=== PATIENT | male | born 1960 | race Caucasian/White ===

== ENCOUNTER 2020-04-15 06:47 | Outpatient (CLI) | payer OTHER, SELFPAY ==
--- NOTE | 2020-04-15 07:15 | XR_ITS ---
WS: [id number] Exam: XR KUB [id number] Date/Time of Exam: 04/15/2020 7:15 AM Reason For Exam: RENAL STONES Comparison 04/15/2019. There are several calcifications superimposing the lower pole of the right kidney. The largest measur ing about a centimeter in greatest diameter. There are also probable small calcifications superimposi ng the upper pole left kidney. No bowel obstruction or free air. Visualized organ margins are intact. Moderate amount stool in the colon. Moderately advanced DJD of the hips. There may be partial fusion of the SI joints. XR/XR KUB [id number] IMPRESSION: 1. Calcifications superimposing both kidneys suggesting bilateral renal lithias is. 2. No acute finding.
== END 2020-04-15 06:48 | disposition home or self-care (01) ==
PROVIDERS: PCP Family Medicine; Visit Provider Urology
DX: N20.0 Calculus of kidney (principal)
CPT/HCPCS: 74018; 81003

== ENCOUNTER 2021-04-18 06:58 | Outpatient (CLI) | payer OTHER, SELFPAY ==
--- NOTE | 2021-04-18 07:15 | XRR_ITS ---
PROCEDURE INFORMATION: Exam: XR Abdomen Exam date and time: 04/18/2021 7:15 AM Age: 60 years old Clinical indication: Renal calculus TECHNIQUE: Imaging protocol: XR of the abdomen. Views: Frontal supine view of the abdomen. 1 View. COMPARISON: CR XR KUB [id number] 04/15/2020 7:02 AM FINDINGS: Gastrointestinal tract: Nonobstructive bowel gas pattern. Moderate gas and stool in the colon; query constipation. Intraperitoneal space: No gross free air. Abdominal organs: Right renal stones are seen. Possible small left renal stone. Probable prior cholecystectomy. XR/XR KUB [id number] IMPRESSION: 1. Right renal stones are seen. Possible small left renal stone. 2. Moderate gas and stool in the colon; query constipation. Radiation Dose CTDIVOL = (mGy): DLP = (mGy-cm)
== END 2021-04-18 06:59 | disposition home or self-care (01) ==
LOC: RAD 07:06
PROVIDERS: PCP Family Medicine; Visit Provider Urology
DX: N20.0 Calculus of kidney (principal)
CPT/HCPCS: 74018; 81003; G0103

== ENCOUNTER 2022-04-18 07:10 | Outpatient (CLI) | payer OTHER, SELFPAY | END 2022-04-18 07:11 | disposition home or self-care (01) | LOC: RAD 07:11 | PROVIDERS: PCP Family Medicine; Visit Provider Urology | DX: N20.0 Calculus of kidney (principal); Z90.49 Acquired absence of other specified parts of digestive tract | CPT/HCPCS: 74018; 81003 ==

== ENCOUNTER → 2024-01-31 14:55 | Outpatient (BNVA) | payer MEDICARE, OTHER, SELFPAY | PROVIDERS: PCP Family Medicine; Referring Provider Family Medicine; Visit Provider Nurse Practitioner Family | DX: D23.71 Other benign neoplasm of skin of right lower limb, including hip (principal); I87.2 Venous insufficiency (chronic) (peripheral); L08.9 Local infection of the skin and subcutaneous tissue, unspecified; L57.0 Actinic keratosis; L28.1 Prurigo nodularis; L57.8 Other skin changes due to chronic exposure to nonionizing radiation | CPT/HCPCS: 11104; 17000; 99204 ==

== ENCOUNTER 2024-02-02 19:12 | Emergency (ER) | payer MEDICARE, SELFPAY ==
--- NOTE | 2024-02-02 19:14 | USR_ITS ---
PROCEDURE INFORMATION: Exam: US Duplex Left Lower Extremity Veins, Limited Exam date and time: 02/02/2024 8:20 PM Age: 63 years old Clinical indication: Pain; Leg, lower; Left; Additional info: Eval for clot TECHNIQUE: Imaging protocol: Real-time duplex ultrasound of the left extremity with 2-D wilson scale, color Doppler flow and spectral waveform analysis including responses to compression and other maneuvers (when performed) with image documentation. Limited exam focused on the left lower extremity veins. COMPARISON: No relevant prior studies available. FINDINGS: Left deep veins: Unremarkable. The common femoral, femoral, proximal profunda femoral and popliteal veins are patent without thrombus. Normal Doppler waveforms. Normal compressibility and/or augmentation response. Superficial veins: Greater saphenous vein at the saphenofemoral junction is patent without thrombus. Soft tissues: Unremarkable. US/CV venous duplex [facility] [id number] IMPRESSION: No evidence of deep vein thrombosis.
[2024-02-02 19:19] VITALS: BP 201/92; PULSE 60; RESP 17; TEMP 37; O2SAT 98; BMI 32.1
--- NOTE | 2024-02-02 19:42 | ED_ITS ---
Documented by User: [email or web address] Flannery 02/02/24 23:11 HPI - Extremity Problem General: Chief complaint: Extremity Problem,Nontraumatic Stated complaint: urgent care sent L leg swollen poss blood clot Time Seen by Provider: 02/02/24 19:26 Source: patient Mode of arrival: ambulatory Limitations: no limitations History of Present Illness: Patient is a 63-year-old male presenting to the emergency department complaining of left lower extremity swelling onset today. Patient had biopsy of skin lesion on his left lower extremity yesterday, and everything was okay until he noticed the swelling this morning. Also was reporting pain to this area. Denies history of blood clots. Denies history of recent immobilization or long traveling, states that he is on his feet all day for a living. He is not on a blood thinner. He states that he is having pain with ambulation. He is not having any shortness of breath or chest pain at this time. Swelling has only gotten worse throughout the day, and terminates at the left knee. He was initially seen in urgent care but referred over here to rule out blood clot. MD Complaint: extremity pain and extremity swelling Onset (ago): hour(s) Pain Consistency: constant Location: left and lower extremity Radiation: proximal Exacerbating factors: weight bearing Associated symptoms: Deny chest pain, fever(s) or rash Related Data Home Medications Medication Instructions Recorded Confirmed aripiprazole 5 mg tablet 5 mg PO DAILY 04/15/20 02/02/24 aspirin 325 mg tablet 325 mg PO DAILY 04/15/20 02/02/24 diltiazem HCl 120 mg 120 mg PO Q12H 04/15/20 02/02/24 capsule,extended release 12 hr gabapentin 300 mg capsule 300 mg PO TID 04/15/20 02/02/24 krill oil 500 mg capsule mg PO 04/15/20 02/02/24 magnesium citrate 100 mg tablet 250 mg PO DAILY 04/15/20 02/02/24 meloxicam 15 mg tablet 15 mg PO DAILY 04/15/20 02/02/24 metoprolol tartrate 50 mg tablet 50 mg PO BID 04/15/20 02/02/24 venlafaxine 150 mg 150 mg PO DAILY 04/15/20 02/02/24 capsule,extended release 24 hr Previous Rx's Medication Instructions Recorded potassium citrate 15 mEq (1,620 15 meq PO BID #60 tabs 06/24/21 mg) tablet,extended release cephalexin 500 mg capsule 500 mg PO BID 7 days #14 caps 02/02/24 Allergies Allergy/AdvReac Type Severity Reaction Status Date / Time esomeprazole [From Nexium] Allergy Unknown Unknown Verified 02/02/24 19:23 ezetimibe [From Vytorin] Allergy Unknown Unknown Verified 02/02/24 19:23 Penicillins Allergy Unknown Unknown Verified 02/02/24 19:23 simvastatin [From Vytorin] Allergy Unknown Unknown Verified 02/02/24 19:23 Review of Systems General: Reports: 10 or more systems reviewed and unremarkable except in HPI and below Const: Denies: fever(s) or chills Card: Denies: chest pain Resp: Denies: dyspnea or productive cough GI: Denies: abdominal pain, nausea, vomiting or diarrhea : Denies: flank pain Musc: Reports: extremity pain and extremity swelling; Denies: neck pain, back pain, joint pain, joint swelling, joint redness, joint warmth, limited range of motion or muscle weakness Skin/Breast: Denies: rash Neuro: Denies: headache(s), numbness in extremities or weakness in extremities PFSH ED PFSH: Medical History Renal calculus, bilateral Family History Mother , at age 47 Stroke Father , at age 38 Accident caused by farm tractor Social History Smoking and tobacco/nicotine status: unknown if used tobacco/nicotine Alcohol intake: current Alcohol intake frequency: few times a month Substance/Drug Use: unknown Adopted: No Caregiver/support person: No Lives independently: No Household members: spouse Marital status: Current occupational status: employed Physical Exam Const: COMMON NORMALS: no acute distress, patient oriented x3 and no limitations GENERAL APPEARANCE: cooperative, comfortable and well developed ORIENTATION/CONSCIOUSNESS: Yes awake, Yes oriented to person, Yes oriented to place and Yes oriented to time HENMT: COMMON NORMALS: normocephalic, atraumatic and hearing grossly normal bilaterally HEAD & SCALP: normocephalic and atraumatic Eye: COMMON NORMALS: Equal, round and reactive pupils present, EOMs intact bilaterally and conjunctivae normal CONJUNCTIVA: Yes conjunctivae normal PUPIL: Yes Equal, round and reactive pupils present Neck/C-Spine: COMMON NORMALS: full ROM, supple and no JVD Resp: COMMON NORMALS: normal respiratory effort, No retractions, No use of accessory muscles and clear to auscultation bilaterally AUSCULTATION: clear to auscultation bilaterally Cardio: COMMON NORMALS: no JVD, regular rate, regular rhythm, No clicks present (Cardio), No murmurs present (Cardio) and No rub (Cardio) RATE: regular rate RHYTHM: regular rhythm GI: COMMON NORMALS: Normal to inspection, nondistended, normoactive bowel sounds present, Soft to palpation and non-tender AUSCULTATION: Yes normoactive bowel sounds PALPATION: Yes Soft to palpation RECTAL EXAM: Yes deferred Extremity: COMMON NORMALS: full ROM and capillary refill normal NARRATIVE EXTREMITY EXAM: Left lower extremity is diffusely edematous below the knee, with overlying erythema and venous stasis changes. His dorsalis pedis pulse is 1+, posterior tibial barely palpable. He has pitting with his edema up to the knee. Area of skin lesion, evidence of recent punch biopsy. Leg diffusely tender to palpation. Neuro: COMMON NORMALS: patient oriented x3, moves all extremities, no focal motor deficits and no sensory deficits noted SENSORIUM/ORIENTATION: Yes oriented to person, Yes oriented to place and Yes oriented to time Skin: COMMON NORMALS: no rashes or lesions noted GENERAL SKIN EXAM: no rashes or lesions noted Course Vital Signs: Vital signs: Vital Signs Temperature 98.6 F 02/02/24 19:19 Pulse Rate 65 02/02/24 21:18 Respiratory Rate 16 02/02/24 21:18 Blood Pressure 162/80 02/02/24 21:18 Pulse Oximetry 96 02/02/24 21:18 Oxygen Delivery Me thod Room Air 02/02/24 19:19 MDM - Extremity (Nontraumatic) Medical Decision Making Patient presented sent from urgent care to rule out blood clot in left lower extremity. On examination he did have quite a bit of erythema to the left leg with pitting edema noted. Did have diminished, albeit palpable pulses to his DP/PT in his left foot. Ultrasound obtained did not reveal any signs of a DVT. He did have a punch biopsy performed yesterday and soon after started developing symptoms, and due to not having any starting historical factors in regards to DVT, we will treat for cellulitis at this time. However we did give strict return precautions such that if he starts having shortness of breath or worsening of swelling to return to the emergency department immediately. Otherwise he will be discharged home at this time. Lab Data Radiology Impressions Venous Duplex 02/02/24 19:14 IMPRESSION: No evidence of deep vein thrombosis. Discharge Plan Discharge Patient Disposition: Home Clinical Impression: Cellulitis Qualifiers: Site of cellulitis: extremity Site of cellulitis of extremity: lower extremity Laterality: left Qualified Code(s): L03.116 - Cellulitis of left lower limb Condition: Stable Prescriptions: New cephalexin 500 mg capsule 500 mg PO BID 7 Days Qty: 14 0RF No Action aspirin 325 mg tablet 325 mg PO DAILY metoprolol tartrate 50 mg tablet 50 mg PO BID Rx Instructions: TAKE 1/2 TABLET BID aripiprazole 5 mg tablet 5 mg PO DAILY magnesium citrate 100 mg tablet 250 mg PO DAILY diltiazem HCl 120 mg capsule,extended release 12 hr 120 mg PO Q12H gabapentin 300 mg capsule 300 mg PO TID venlafaxine 150 mg capsule,extended release 24hr 150 mg PO DAILY meloxicam 15 mg tablet 15 mg PO DAILY krill oil 500 mg capsule PO potassium citrate 15 mEq tablet extended release 15 meq PO BID Qty: 60 12RF Rx Instructions: 340 B Discharge Orders: Discharge ED (Routine); Ordered 02/02/24 Ordered By: Samuel Babb Referrals: Ladarius Strickland MD [Primary Care Provider] - Discharge Diet: Usual diet Discharge Activity: Increase activity as tolerated Patient Instructions: Cellulitis (ED) Activity Restrictions/Additional Instructions: Take antibiotics as prescribed. Please follow-up with your primary doctor early next week for reevaluation. Return with any new or worsening symptoms. Coding Level of Care Code ED Bank Credit Card Collection Clerk for Hillary Fwd Documented by User: Prema Bustillos MD 02/02/24 21:05 HPI - Extremity Problem General: Chief complaint: Extremity Problem,Nontraumatic Stated complaint: urgent care sent L leg swollen poss blood clot Time Seen by Provider: 02/02/24 19:26 Related Data Home Medications Medication Instructions Recorded Confirmed aripiprazole 5 mg tablet 5 mg PO DAILY 04/15/20 02/02/24 aspirin 325 mg tablet 325 mg PO DAILY 04/15/20 02/02/24 diltiazem HCl 120 mg 120 mg PO Q12H 04/15/20 02/02/24 capsule,extended release 12 hr gabapentin 300 mg capsule 300 mg PO TID 04/15/20 02/02/24 krill oil 500 mg capsule mg PO 04/15/20 02/02/24 magnesium citrate 100 mg tablet 250 mg PO DAILY 04/15/20 02/02/24 meloxicam 15 mg tablet 15 mg PO DAILY 04/15/20 02/02/24 metoprolol tartrate 50 mg tablet 50 mg PO BID 04/15/20 02/02/24 venlafaxine 150 mg 150 mg PO DAILY 04/15/20 02/02/24 capsule,extended release 24 hr Previous Rx's Medication Instructions Recorded potassium citrate 15 mEq (1,620 15 meq PO BID #60 tabs 06/24/ mg) tablet,extended release cephalexin 500 mg capsule 500 mg PO BID 7 days #14 caps 02/02/24 Allergies Allergy/AdvReac Type Severity Reaction Status Date / Time esomeprazole [From Nexium] Allergy Unknown Unknown Verified 02/02/24 19:23 ezetimibe [From Vytorin] Allergy Unknown Unknown Verified 02/02/24 19:23 Penicillins Allergy Unknown Unknown Verified 02/02/24 19:23 simvastatin [From Vytorin] Allergy Unknown Unknown Verified 02/02/24 19:23 PFS ED PFSH: Medical History Renal calculus, bilateral Family History Mother , at age 47 Stroke Father , at age 38 Accident caused by farm tractor Social History Smoking and tobacco/nicotine status: unknown if used tobacco/nicotine Alcohol intake: current Alcohol intake frequency: few times a month Substance/Drug Use: unknown Adopted: No Caregiver/support person: No Lives independently: No Household members: spouse Marital status: Current occupational status: employed Course Vital Signs: Vital signs: Vital Signs Temperature 98.6 F 02/02/24 19:19 Pulse Rate 65 02/02/24 21:18 Respiratory Rate 16 02/02/24 21:18 Blood Pressure 162/80 02/02/24 21:18 Pulse Oximetry 96 02/02/24 21:18 Oxygen Delivery Me thod Room Air 02/02/24 19:19 MDM - Extremity (Nontraumatic) Lab Data Radiology Impressions Venous Duplex 02/02/24 19:14 IMPRESSION: No evidence of deep vein thrombosis. All radiology interpretation(s) finalized by discharge Discharge Plan Discharge Patient Disposition: Home Clinical Impression: Cellulitis Qualifiers: Site of cellulitis: extremity Site of cellulitis of extremity: lower extremity Laterality: left Qualified Code(s): L03.116 - Cellulitis of left lower limb Condition: Stable Prescriptions: New cephalexin 500 mg capsule 500 mg PO BID 7 Days Qty: 14 0RF No Action aspirin 325 mg tablet 325 mg PO DAILY metoprolol tartrate 50 mg tablet 50 mg PO BID Rx Instructions: TAKE 1/2 TABLET BID aripiprazole 5 mg tablet 5 mg PO DAILY magnesium citrate 100 mg tablet 250 mg PO DAILY diltiazem HCl 120 mg capsule,extended release 12 hr 120 mg PO Q12H gabapentin 300 mg capsule 300 mg PO TID venlafaxine 150 mg capsule,extended release 24hr 150 mg PO DAILY meloxicam 15 mg tablet 15 mg PO DAILY krill oil 500 mg capsule PO potassium citrate 15 mEq tablet extended release 15 meq PO BID Qty: 60 12RF Rx Instructions: 340 B Discharge Orders: Discharge ED (Routine); Ordered 02/02/24 Ordered By: Samuel Babb Referrals: Ladarius Strickland MD [Primary Care Provider] - Discharge Diet: Usual diet Discharge Activity: Increase activity as tolerated Patient Instructions: Cellulitis (ED) Activity Restrictions/Additional Instructions: Take antibiotics as prescribed. Please follow-up with your primary doctor early next week for reevaluation. Return with any new or worsening symptoms. Coding Level of Care Code ED Bank Credit Card Collection Clerk for Hillary Em
[2024-02-02] MEDS: cephALEXin 500 mg Capsule PO (21:10)
[2024-02-02 21:18] VITALS: BP 162/80; PULSE 65; RESP 16; O2SAT 96
== END 2024-02-02 21:19 | disposition home or self-care (01) ==
PROVIDERS: Emergency Provider Physician Assistant; PCP Family Medicine
DX: L03.116 Cellulitis of left lower limb (principal); Z79.82 Long term (current) use of aspirin
CPT/HCPCS: 93971; 99284

== ENCOUNTER → 2024-02-12 09:23 | Outpatient (BNVA) | payer MEDICARE, SELFPAY | PROVIDERS: PCP Family Medicine; Visit Provider Nurse Practitioner Family | DX: L30.0 Nummular dermatitis (principal); L81.0 Postinflammatory hyperpigmentation | CPT/HCPCS: 99213 ==

== ENCOUNTER → 2024-06-11 10:55 | Outpatient (BNVA) | payer MEDICARE, SELFPAY | PROVIDERS: PCP Family Medicine; Visit Provider Nurse Practitioner Family | DX: L98.1 Factitial dermatitis (principal); L30.0 Nummular dermatitis; L81.0 Postinflammatory hyperpigmentation; S60.022A Contusion of left index finger without damage to nail, initial encounter; X58.XXXA Exposure to other specified factors, initial encounter | CPT/HCPCS: 99213 ==

== ENCOUNTER → 2024-06-17 07:35 | Outpatient (BNVA) | payer MEDICARE, SELFPAY | PROVIDERS: PCP Family Medicine; Referring Provider Family Medicine; Visit Provider Psychiatry & Neurology Neurology | DX: R53.1 Weakness; G25.3 Myoclonus; E55.9 Vitamin D deficiency, unspecified | CPT/HCPCS: 36415; 82085; 82306; 82550; 82607; 82746; 83735; 83921; 84439; 84443; 84481; 85652; 86140; 86160; 86162; 86235; 86255; 86376; 86431; 86617; 99203 ==

== ENCOUNTER 2024-06-19 16:00 | Outpatient (CLI) | payer MEDICARE, SELFPAY ==
--- NOTE | 2024-06-19 16:30 | CT_ITS ---
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 Sagittal and coronal reformats are submitte d and reviewed. All CT scans at [facility] use at least one of these dose optimization techni ques: automated exposure control; mA and/or kV adjustment per patient size (includes targeted exams w here dose is matched to clinical indication); or iterative reconstruction. IV contrast: None DLP: 1391.80 mGy.cm Contrast: Omnipaque 350 100 mL. COMPARISON: None available. Normal lumbar alignment. Disc spaces are preserved. No fractures. L1-2: No stenosis. L2-3: Mild annular disc bulging with mild ligamentum flavum and facet arthritis. Mild central and sub articular recess stenosis. L3-4: Mild diffuse annular disc bulging encroaching upon the ventral thecal sac. Mild ligamentum flav um and facet arthritis. Mild central, bilateral subarticular recess and foraminal stenosis. L4-5: Marked annular disc bulging with small bilateral foraminal disc protrusions. Moderate ligamentu m flavum and facet joint arthritis. Increased air in the facet joints with mild widening of the RIGHT facet joint. Moderate to severe central with bilateral subarticular recess and foraminal stenosis, R IGHT greater than LEFT. L5-S1: Annular disc bulging and osteophytic ridging. Mild disc disc and osteophyte contact on the exi ting nerve roots. Slightly greater encroachment on the RIGHT exiting nerve root. Moderate to severe R IGHT and moderate LEFT foraminal stenosis. Moderate atherosclerosis abdominal aorta. Bilateral nonobstructing renal calculi. Simple LEFT renal c yst. Postcontrast imaging demonstrates no enhancement or mass identified. CT/CT lumbar spine wo/w con [id number] IMPRESSION: 1. No acute lumbar spine fracture. 2. L4-5: Degenerative disc disease, disc protrusions, facet and ligamentum fla vum hypertrophy. Resulting in moderate to severe central with bilateral subarti cular recess and foraminal stenosis, RIGHT greater than LEFT. 3. L4-5: Increased air in the facet joints with mild widening of the RIGHT fac et joint at L4-5. 4. L5-S1: Moderate to severe RIGHT and moderate LEFT foraminal stenosis due to disc and osteophyte disease. 5. L2-3: Mild central and subarticular recess encroachment. 6. L3-4: Mild central, bilateral subarticular recess and foraminal stenosis. 7. Postcontrast imaging is negative for abnormal enhancement.
[2024-06-19 16:31] LABS: Blood Urea Nitrogen 19 mg/dL (8-23); Glomerular Filtration Rate 50.9 mL/min (90-130)
[2024-06-19] MEDS: iohexol 350 mg/mL 500 mL Btl (per mL) IV (16:40)
== END 2024-06-19 16:01 | disposition home or self-care (01) ==
LOC: RAD 16:00
PROVIDERS: PCP Family Medicine; Visit Provider Psychiatry & Neurology Neurology
DX: G25.3 Myoclonus (principal); G62.9 Polyneuropathy, unspecified; M51.369 Other intervertebral disc degeneration, lumbar region without mention of lumbar back pain or lower extremity pain; M48.061 Spinal stenosis, lumbar region without neurogenic claudication; M51.26 Other intervertebral disc displacement, lumbar region; M25.78 Osteophyte, vertebrae; M47.896 Other spondylosis, lumbar region; M51.379 Other intervertebral disc degeneration, lumbosacral region without mention of lumbar back pain or lower extremity pain; M48.07 Spinal stenosis, lumbosacral region; I70.0 Atherosclerosis of aorta; N20.0 Calculus of kidney; N28.1 Cyst of kidney, acquired
CPT/HCPCS: 72133; 82565; 84520

== ENCOUNTER → 2024-06-23 09:05 | Outpatient (BNVA) | payer MEDICARE, SELFPAY | PROVIDERS: PCP Family Medicine; Referring Provider Psychiatry & Neurology Neurology; Visit Provider Psychiatry & Neurology Neurology | DX: G25.3 Myoclonus (principal) | CPT/HCPCS: 95819; 95910 ==

== ENCOUNTER → 2024-06-26 15:07 | Outpatient (BNVA) | payer MEDICARE, SELFPAY | PROVIDERS: PCP Family Medicine; Visit Provider Orthopaedic Surgery | DX: M43.17 Spondylolisthesis, lumbosacral region (principal); M54.50 Low back pain, unspecified | CPT/HCPCS: 72110; 99204 ==

== ENCOUNTER 2024-07-17 07:22 | Outpatient (RCR) | payer MEDICARE, SELFPAY | END 2024-07-25 23:59 | disposition home or self-care (01) | LOC: SPT 07:22 | PROVIDERS: Visit Provider Orthopaedic Surgery | DX: M54.9 Dorsalgia, unspecified (principal); G89.29 Other chronic pain | CPT/HCPCS: 97110; 97161 ==

== ENCOUNTER 2024-07-18 08:05 | Outpatient (CLI) | payer MEDICARE, SELFPAY ==
--- NOTE | 2024-07-18 09:00 | IR_ITS ---
WS: [id number] MYELOGRAM LUMBAR SPINE Fluoroscopic guided lumbar myelogram CLINICAL INFORMATION: M43.17 - Spondylolisthesis, lumbosacral region TECHNIQUE: The procedure, including risks, benefits, and complications, were discussed with the patient who agreed to proceed. A timeout was performed to confirm correct patient, procedure, and site. Using sterile technique, the patient was prepped and draped in the usual sterile fashion. After administration of local anesthesia using 1% preservative-free lidocaine and using fluoroscopic guidance, a 22-gauge spinal needle was advanced into the subarachnoid space at the L4-5 level. Subsequently 13 cc of Omnipaque 240 was administered into the thecal sac. The needle was removed and hemostasis was achieved. Spot fluoroscopic images were obtained. FLUOROSCOPIC TIME: 2min [id number] # of spot films: [address] myelogram report for further anatomic detail. Mild lumbar curve. Cholecystectomy clips. Chronic spondylolysis L5-S1. Aortic calcification. IR/IR myelogram sp lumbar [id number] IMPRESSION: 1. Uncomplicated lumbar myelogram. 2. CT myelogram to follow.
--- NOTE | 2024-07-18 09:16 | CT_ITS ---
WS: [id number] CT LUMBAR MYELOGRAM TECHNIQUE: CT myelogram of the lumbar spine with coronal and sagittal reformatted images. CLINICAL INFORMATION: M43.17 - Spondylolisthesis, lumbosacral region COMPARISON: CT 06/19/2024 DLP: 644.[address] scans at [facility] use at least one of these dose optimization techniques: automated exposure control; mA and/or kV adjustment per patient size (includes targeted exams where dose is matched to clinical indication); or iterative reconstruction. FINDINGS: Mild lumbar curve. No acute compression. Grade 1 anterolisthesis L5 on S1 with chronic spondylolysis. L1-L2: Normal. L2-L3: Normal. L3-L4: Mild annular bulging. LEFT eccentric disc bulge with mild LEFT foraminal narrowing. Spinal canal and RIGHT foramen are patent. Mild facet arthropathy. L4-L5: Shallow central protrusion. Moderate central canal stenosis with LEFT to RIGHT narrowing of the thecal sac. Impingement of traversing L5 nerve roots. Moderate to advanced facet arthropathy. Moderate RIGHT and mild LEFT foraminal narrowing. L5-S1: Grade 1 anterolisthesis with chronic spondylolysis. Moderate facet arthropathy. Moderate to severe RIGHT foraminal narrowing impinges the exiting RIGHT L5 nerve root. Moderate LEFT foraminal narrowing. Adrenal glands are normal. Partially visualized cholecystectomy clips. LEFT renal cyst partially visualized measuring 4.5 cm. Aortic calcification. Sigmoid diverticulosis. Nonobstructing partially evaluated calyceal and parenchymal calculi RIGHT greater than LEFT. Visualized pelvic bony structures: Normal. Paravertebral soft tissues: Normal. CT/CT lumbar spine w con [id number] IMPRESSION: 1. Grade 1 anterolisthesis L5 on S1 with chronic spondylolysis. 2. Moderate to severe RIGHT L5-S1 foraminal narrowing impinges the exiting RIG HT L5 nerve root. Moderate LEFT L5-S1 foraminal narrowing. 3. Shallow central disc protrusion L4-5 impinges the traversing L5 nerve roots in the subarticular recess with moderate central canal stenosis and LEFT to RI GHT narrowing of the thecal sac. 4. Moderate RIGHT L4-5 foraminal narrowing. 5. Moderate to advanced arthropathy L4-L5 and L5-S1.
[2024-07-18] MEDS: iohexol 240 mg/mL 50 mL Btl INTRATHECA (09:26)
== END 2024-07-18 08:06 | disposition home or self-care (01) ==
PROVIDERS: PCP Family Medicine; Visit Provider Orthopaedic Surgery
DX: M43.17 Spondylolisthesis, lumbosacral region (principal); R93.7 Abnormal findings on diagnostic imaging of other parts of musculoskeletal system; M48.07 Spinal stenosis, lumbosacral region; M51.27 Other intervertebral disc displacement, lumbosacral region; M48.061 Spinal stenosis, lumbar region without neurogenic claudication; M47.896 Other spondylosis, lumbar region; M47.897 Other spondylosis, lumbosacral region; M43.8X6 Other specified deforming dorsopathies, lumbar region; M51.369 Other intervertebral disc degeneration, lumbar region without mention of lumbar back pain or lower extremity pain; M51.26 Other intervertebral disc displacement, lumbar region; Z90.49 Acquired absence of other specified parts of digestive tract; N28.1 Cyst of kidney, acquired; I70.0 Atherosclerosis of aorta; K57.30 Diverticulosis of large intestine without perforation or abscess without bleeding; N20.0 Calculus of kidney
CPT/HCPCS: 62304; 72132

== ENCOUNTER 2024-07-26 06:00 | Outpatient (RCR) | payer MEDICARE, SELFPAY | END 2024-08-20 08:40 | disposition home or self-care (01) | LOC: SPT 06:00 | PROVIDERS: PCP Family Medicine; Visit Provider Orthopaedic Surgery | DX: M54.9 Dorsalgia, unspecified (principal); G89.29 Other chronic pain | CPT/HCPCS: 97110 ==

== ENCOUNTER → 2024-07-28 12:55 | Outpatient (BNVA) | payer MEDICARE, SELFPAY | PROVIDERS: PCP Family Medicine; Referring Provider Orthopaedic Surgery; Visit Provider Anesthesiology Pain Medicine | DX: M43.17 Spondylolisthesis, lumbosacral region (principal); G62.9 Polyneuropathy, unspecified | CPT/HCPCS: 99204 ==

== ENCOUNTER → 2024-07-29 08:18 | Outpatient (BNVA) | payer MEDICARE, SELFPAY | PROVIDERS: PCP Family Medicine; Visit Provider Orthopaedic Surgery | DX: Z09 Encounter for follow-up examination after completed treatment for conditions other than malignant neoplasm (principal) | CPT/HCPCS: 99213 ==

== ENCOUNTER → 2024-08-26 10:39 | Outpatient (BNVA) | payer MEDICARE, SELFPAY | PROVIDERS: PCP Family Medicine; Visit Provider Orthopaedic Surgery | DX: M43.17 Spondylolisthesis, lumbosacral region (principal) | CPT/HCPCS: 99214 ==

== ENCOUNTER → 2024-09-01 14:29 | Outpatient (BNVA) | payer MEDICARE, SELFPAY | PROVIDERS: PCP Family Medicine; Visit Provider Anesthesiology Pain Medicine | DX: G62.9 Polyneuropathy, unspecified (principal); M54.9 Dorsalgia, unspecified; M43.17 Spondylolisthesis, lumbosacral region | CPT/HCPCS: 99214 ==

== ENCOUNTER → 2024-09-23 13:50 | Outpatient (BNVA) | payer MEDICARE, SELFPAY | PROVIDERS: PCP Family Medicine; Visit Provider Psychiatry & Neurology Neurology | DX: G25.3 Myoclonus (principal); G62.9 Polyneuropathy, unspecified; R53.1 Weakness; E55.9 Vitamin D deficiency, unspecified; M43.17 Spondylolisthesis, lumbosacral region; M21.40 Flat foot [pes planus] (acquired), unspecified foot | CPT/HCPCS: 36415; 82306; 85651; 86334; 99212 ==

== ENCOUNTER → 2024-09-29 13:58 | Outpatient (BNVA) | payer MEDICARE, SELFPAY | PROVIDERS: PCP Family Medicine; Visit Provider Anesthesiology Pain Medicine | DX: M54.9 Dorsalgia, unspecified (principal); G62.9 Polyneuropathy, unspecified; M43.17 Spondylolisthesis, lumbosacral region | CPT/HCPCS: 99214 ==

== ENCOUNTER 2024-10-03 08:09 | Outpatient (CLI) | payer MEDICARE, SELFPAY ==
--- NOTE | 2024-10-03 08:30 | CT_ITS ---
WS: [id number] CT THORACIC SPINE TECHNIQUE: Noncontrast CT of the thoracic spine with coronal and sagittal reformatted images. 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 DLP: 730.[address] scans at [facility] use at least one of these dose optimization techniques: automated exposure control; mA and/or kV adjustment per patient size (includes targeted exams where dose is matched to clinical indication); or iterative reconstruction. FINDINGS: Mild thoracic curve. Anterior hypertrophic changes thoracic spine. Cardiac pacer. No high-grade central canal stenosis. Moderate facet arthropathy lower thoracic spine. No acute compression fractures. Mild spondylitic changes. Lungs are well aerated. Adrenal glands are normal. Tiny esophageal hiatal hernia. CT/CT thoracic spin wo con* [id number] IMPRESSION: No acute thoracic spine findings.
--- NOTE | 2024-10-03 09:00 | CT_ITS ---
WS: [id number] CT CERVICAL SPINE TECHNIQUE: Noncontrast CT of the cervical spine with coronal and sagittal reformatted images. 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 DLP: 184.[address] scans at [facility] use at least one of these dose optimization techniques: automated exposure control; mA and/or kV adjustment per patient size (includes targeted exams where dose is matched to clinical indication); or iterative reconstruction. FINDINGS: Straightening of the normal cervical lordosis. Mild spondylitic changes. No high-grade central canal narrowing. Mastoid air cells are well aerated. C2-C3: Mild RIGHT and no significant LEFT foraminal narrowing. Mild facet arthropathy. C3-C4: Mild facet arthropathy. Mild LEFT foraminal narrowing. C4-C5: Disc osteophyte ridging. Moderate LEFT greater than RIGHT bony foraminal narrowing. Uncovertebral joint hypertrophy. Mild facet arthropathy. C5-C6: Disc osteophyte complex with mild central canal stenosis. Moderate LEFT greater than RIGHT bony foraminal narrowing. Mild facet arthropathy. C6-C7: Endplate ridging. Mild LEFT and no significant RIGHT foraminal narrowing. C7-T1: Mild LEFT and no significant RIGHT foraminal narrowing. Spinal canal is patent. Visualized posterior nasopharynx: Normal. Prevertebral soft tissues: Normal. CT/CT cervical spin wo con* [id number] IMPRESSION: 1. Straightening of normal cervical lordosis. Mild spondylitic changes. 2. Mild central canal stenosis C5-C6 with disc osteophyte complex. 3. Moderate multilevel bony foraminal narrowing described above.
== END 2024-10-03 08:10 | disposition home or self-care (01) ==
PROVIDERS: PCP Family Medicine; Visit Provider Psychiatry & Neurology Neurology
DX: G25.3 Myoclonus (principal); G62.9 Polyneuropathy, unspecified; M43.17 Spondylolisthesis, lumbosacral region; M21.40 Flat foot [pes planus] (acquired), unspecified foot; M47.892 Other spondylosis, cervical region; M48.02 Spinal stenosis, cervical region; M25.78 Osteophyte, vertebrae; M50.323 Other cervical disc degeneration at C6-C7 level; M43.8X4 Other specified deforming dorsopathies, thoracic region; M89.38 Hypertrophy of bone, other site; Z96.89 Presence of other specified functional implants; M47.894 Other spondylosis, thoracic region
CPT/HCPCS: 72125; 72128

== ENCOUNTER 2024-10-07 14:21 | Outpatient (CLI) | payer MEDICARE, SELFPAY | END 2024-10-07 14:22 | disposition home or self-care (01) | LOC: SPT 14:22 | PROVIDERS: PCP Family Medicine; Visit Provider Podiatrist Foot & Ankle Surgery | DX: Z46.89 Encounter for fitting and adjustment of other specified devices (principal); M79.673 Pain in unspecified foot; G62.9 Polyneuropathy, unspecified | CPT/HCPCS: L3030 ==

== ENCOUNTER → 2024-11-25 14:13 | Outpatient (BNVA) | payer MEDICARE, SELFPAY | PROVIDERS: PCP Family Medicine; Visit Provider Nurse Practitioner Family | DX: L30.0 Nummular dermatitis (principal); D23.71 Other benign neoplasm of skin of right lower limb, including hip; L81.0 Postinflammatory hyperpigmentation; L81.4 Other melanin hyperpigmentation; L57.8 Other skin changes due to chronic exposure to nonionizing radiation; D48.5 Neoplasm of uncertain behavior of skin; L57.0 Actinic keratosis | CPT/HCPCS: 11102; 17000; 99214 ==

== ENCOUNTER → 2024-12-29 13:01 | Outpatient (BNVA) | payer MEDICARE, SELFPAY | PROVIDERS: PCP Family Medicine; Referring Provider Family Medicine; Visit Provider Psychiatry & Neurology Neurology | DX: Z09 Encounter for follow-up examination after completed treatment for conditions other than malignant neoplasm (principal); G25.3 Myoclonus | CPT/HCPCS: 99212 ==

== ENCOUNTER → 2025-01-07 12:40 | Outpatient (BNVA) | payer MEDICARE, SELFPAY | PROVIDERS: PCP Family Medicine; Visit Provider Dermatology | DX: D22.71 Melanocytic nevi of right lower limb, including hip (principal) | CPT/HCPCS: 11602 ==

== ENCOUNTER 2025-01-08 10:16 | Outpatient (CLI) | payer MEDICARE, SELFPAY ==
--- NOTE | 2025-01-08 10:30 | CT_ITS ---
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 Bone and soft tissue windows. Sagittal and coronal reformats reviewed. All CT scans at [facility] use at least one of these dose optimization techniques: automated exposure control; mA and/or kV adjustment per patient size (includes targeted exams where dose is matched to clinical indication); or iterative reconstruction. DLP: 1075.40 mGy.cm COMPARISON: None available. No acute intracranial hemorrhage, midline shift or mass effect. Mild atrophy and minimal small vessel disease. No prior infarct. Ventricles: Normal size with no hydrocephalus. Scattered calcifications in the distal vertebral arteries and intracranial carotid arteries. Paranasal sinuses: As visualized are clear. Mastoid air cells: Well pneumatized. Calvarium and scalp: Skull is intact with no soft tissue edema or swelling. CT/CT head wo con* [id number] IMPRESSION: 1. No acute intracranial hemorrhage or edema. 2. Minimal small vessel disease and atrophy. No prior infarct.
== END 2025-01-08 10:17 | disposition home or self-care (01) ==
LOC: RAD 10:17
PROVIDERS: PCP Family Medicine; Visit Provider Psychiatry & Neurology Neurology
DX: G25.3 Myoclonus (principal); I67.89 Other cerebrovascular disease; G31.9 Degenerative disease of nervous system, unspecified
CPT/HCPCS: 70450

== ENCOUNTER 2025-01-15 07:57 | Outpatient (CLI) | payer MEDICARE, SELFPAY ==
--- NOTE | 2025-01-15 08:06 | US_ITS ---
WS: [id number] RENAL ULTRASOUND HISTORY: NEPHROLITHIASIS COMPARISON: None available. TECHNIQUE: 2-D and color Doppler imaging of the kidney submitted. Right kidney: 11.9 cm x 6.0 cm x 6.1 cm. Cortex: 1.1 cm Normal echogenicity with no hydronephrosis or mass. Cortical cyst inferior pole 1.0 x 1.3 x 1.1 cm. Cortical cyst superior pole 1.2 x 1.0 x 0.9 cm. Left kidney: 11.1 cm x 5.5 cm x 5.4 cm. Cortex: 1.2 cm Normal echogenicity with no hydronephrosis or mass. Cortical cyst lower pole 5.1 x 3.5 x 4.4 cm. Aorta: Normal. Urinary Bladder: Normal distention. US/US renal BI* [id number] IMPRESSION: 1. No renal obstruction or cortical thinning. 2. Bilateral cortical cysts. No solid mass.
== END 2025-01-15 07:58 | disposition home or self-care (01) ==
LOC: RAD 07:59
PROVIDERS: PCP Family Medicine; Visit Provider Nurse Practitioner Family
DX: N28.1 Cyst of kidney, acquired (principal); Z87.442 Personal history of urinary calculi
CPT/HCPCS: 76770

== ENCOUNTER 2025-03-02 08:44 | Outpatient (CLI) | payer MEDICARE, SELFPAY ==
--- NOTE | 2025-03-02 08:53 | XR_ITS ---
WS: [id number] KUB, AP view, 03/02/2025 Clinical Data: NEPHROLITHIASIS Comparison: KUB, 03/18/2022 Findings: There are calcifications overlying the inferior pole right kidney which if diminished in size. There is fecal material in the colon obscuring some detail over the kidneys. There are right upper quadrant cholecystectomy clips. There is air in the small bowel and colon. XR/XR KUB [id number] Impression: Probable right renal calcifications.
== END 2025-03-02 08:45 | disposition home or self-care (01) ==
PROVIDERS: PCP Family Medicine; Visit Provider Nurse Practitioner Family
DX: N20.0 Calculus of kidney (principal); Z96.89 Presence of other specified functional implants
CPT/HCPCS: 74018

== ENCOUNTER → 2025-03-31 09:37 | Outpatient (BNVA) | payer MEDICARE, SELFPAY | PROVIDERS: PCP Family Medicine; Visit Provider Anesthesiology Pain Medicine | DX: M43.17 Spondylolisthesis, lumbosacral region (principal); G62.9 Polyneuropathy, unspecified | CPT/HCPCS: 99214 ==